=== PATIENT | male | born 1985 | race Caucasian/White ===

== ENCOUNTER 2021-02-11 15:42 | Emergency (ER) | payer OTHER ==
[~2021-02-11] VITALS: Ht 195.6 cm; Wt 79.4 kg
[2021-02-11 16:42] VITALS: BP 125/86
== END 2021-02-11 16:43 | disposition home or self-care (01) ==
LOC: M.ERS 15:42
DX: Z20.822 Contact with and (suspected) exposure to COVID-19 (principal)

== ENCOUNTER 2021-02-14 12:53 | Emergency (ER) | payer OTHER ==
[~2021-02-14] VITALS: Ht 177.8 cm; Wt 68.0 kg
[2021-02-14 14:50] VITALS: BP 148/73
== END 2021-02-14 14:50 | disposition home or self-care (01) ==
LOC: M.ERS 12:53
DX: Z20.822 Contact with and (suspected) exposure to COVID-19 (principal)